=== PATIENT | male | born 1975 | race Caucasian/White ===

== ENCOUNTER 2018-03-28 17:55 | Emergency (ER) | payer BC ==
[~2018-03-28] VITALS: Ht 180.3 cm; Wt 79.4 kg
[~2018-03-28 17:55] MED LIST: HYDACE5 PO; PHENA200 PO; RAMI1.25 PO; RAMI2.5 PO; RXHYDACE PO; SULTRISS PO
[2018-03-28 18:25] LABS: BASOPHILS ABSOLUTE AUTO 0.05 K/mm3 (0.00-0.23); BASOPHILS PERCENT AUTO 0 % (0-2); EOSINOPHILS ABSOLUTE AUTO 0.18 K/mm3 (0.00-0.68); EOSINOPHILS PERCENT AUTO 2 % (0-6); Hematocrit 48.5 % (37.0-53.0); Hemoglobin 16.8 g/dL (13.5-17.5); IMMATURE GRAN ABSOLUTE AUTO 0.02 K/mm3 (0.00-0.10); IMMATURE GRAN PERCENT AUTO 0 % (0-1); LYMPHOCYTES ABSOLUTE AUTO 2.19 K/mm3 (0.84-5.20); LYMPHOCYTES PERCENT AUTO 20 % (21-46); MONOCYTES PERCENT AUTO 8 % (4-13); Mean Corpuscular HGB 29.6 pg (26.0-34.0); Mean Corpuscular HGB Conc 34.6 g/dL (31.5-36.5); Mean Corpuscular Volume 86 fL (80-100); Mean Platelet Volume 9.9 fL (9.1-12.4); NEUTROPHILS ABSOLUTE AUTO 7.88 K/mm3 (1.96-9.15); NEUTROPHILS PERCENT AUTO 70 % (41-73); Platelet Count 242 K/mm3 (150-400); RDW Coefficient Variation 12.1 % (11.7-14.2); RDW Standard Deviation 37.2 fL (35.1-46.3); Red Blood Cell Count 5.67 M/mm3 (4.30-5.90); White Blood Cell Count 11.22 K/mm3 (4.00-11.30)
[2018-03-28 18:47] LABS: Alanine Aminotransfer (ALT/SGP 25 U/L (12-78); Albumin, Blood 4.2 g/dL (3.4-5.0); Albumin/Globulin Ratio 1.3 (0.8-1.8); Alk Phos 98 U/L (50-136); Anion Gap 7 mmol/L (6-16); Aspartate Aminotrans (AST/SGOT 22 U/L (12-37); Bilirubin, Total 0.6 mg/dL (0.1-1.0); Blood Urea Nitrogen 15 mg/dL (8-24); Bun/Creatinine Ratio 22.1 (12.0-20.0); CO2, Blood 25 mmol/L (21-32); Chloride, Blood 107 mmol/L (98-108); Creatinine, Blood 0.68 mg/dL (0.60-1.20); Globulin, Blood 3.2 g/dL (2.2-4.0); Glomerular Filtration Rate >60 (60-); Glucose, Blood 99 mg/dL (70-99); Sodium, Blood 139 mmol/L (136-145); Total Protein, Blood 7.4 g/dL (6.4-8.2)
[2018-03-28] MEDS ORDERED: Zantac150 MG PO (19:15)
== END 2018-03-28 19:35 | disposition home or self-care (01) ==
LOC: ER 17:55
PROVIDERS: Emergency Medicine
DX: K29.70 Gastritis, unspecified, without bleeding (principal); F17.290 Nicotine dependence, other tobacco product, uncomplicated
CPT/HCPCS: 36415; 80053; 83690; 85025; 96361; 96374; 96375; 99284; J0780; J1200; J3010; J7030

== ENCOUNTER → 2018-08-29 | Outpatient (CLI) | payer BC ==
[~2018-08-29] MED LIST changes: +Zantac150 MG PO
[2018-08-30 09:07] LABS: Influenza A Negative (NEGATIVE); Influenza B Negative (NEGATIVE)
== END ==
LOC: LAB SHORT 16:06 → LAB 16:06
PROVIDERS: Nurse Practitioner Family
DX: R05 Cough (principal)
CPT/HCPCS: 87804

== ENCOUNTER 2019-03-13 12:30 | Inpatient (IN) | payer BC ==
[~2019-03-13] VITALS: Ht 180.3 cm; Wt 82.6 kg
--- NOTE | 2019-03-14 04:47 | NUR ---
NOC SHIFT SUMMARY PT IS PLEASANT AND COOPERATIVE WITH CARE. VSS. RESP EVEN AND UNLABORED. NPO. PAIN MANAGED PER EMAR. THE FENTANYL WAS NOT ADEQUATE FOR PAIN CONTROL. CALLED FOR TORADOL IV AND THIS HAS HELPED QUITE ALOT. PT HAS SLEPT FOR MUCH OF NIGHT. NO ACUTE CHANGES NOTED. CURRENTLY APPEARS IN NO ACUTE DISTRESS. WILL CONTINUE TO MONITOR.
[2019-03-14 05:32] LABS: Hematocrit 46.3 % (37.0-53.0); Hemoglobin 15.4 g/dL (13.5-17.5); Mean Corpuscular HGB 31.3 pg (26.0-34.0); Mean Corpuscular HGB Conc 33.3 g/dL (31.5-36.5); Mean Corpuscular Volume 94 fL (80-100); Mean Platelet Volume 9.6 fL (9.1-12.4); Platelet Count 192 K/mm3 (150-400); RDW Coefficient Variation 11.9 % (11.7-14.2); RDW Standard Deviation 41.5 fL (35.1-46.3); Red Blood Cell Count 4.92 M/mm3 (4.30-5.90); White Blood Cell Count 3.95 K/mm3 (4.00-11.30)
[2019-03-14 06:04] LABS: BAND PERCENT MAN 11 % (0-8); BASOPHILS PERCENT MAN 0 % (0-2); EOSINOPHILS ABSOLUTE MAN 0.07 K/mm3 (0.00-0.68); EOSINOPHILS PERCENT MAN 2 % (0-6); LYMPHOCYTES ABSOLUTE MAN 1.14 K/mm3 (0.84-5.20); LYMPHOCYTES PERCENT MAN 29 % (21-46); MONOCYTES ABSOLUTE MAN 0.67 K/mm3 (0.16-1.47); MONOCYTES PERCENT MAN 17 % (4-13); NEUTROPHILS ABSOLUTE MAN 2.05 K/mm3 (1.96-9.15); SEG NEUTROPHILS PERCENT MAN 41 % (41-73); TOTAL CELLS COUNTED 100
--- NOTE | 2019-03-14 18:23 | NUR ---
PATIENT HAS HAD MULTIPLE BM'S TODAY, LIQUID IN CONSISTENCY. NO COMPLAINTS OF ABDOMINAL PAIN. INDEPENDENT IN THE ROOM.
--- NOTE | 2019-03-15 09:38 | NUR ---
BREAKFAST THE PT REPORTED THAT HE TOLERATED BREAKFAST WELL, NO NAUSEA
--- NOTE | 2019-03-15 15:10 | NUR ---
PT DISCHARGED AROUND 1330 THE PT VERBALIZED UNDERSTANDING OF THE DC INSTRUCTIONS, PT HAD NO NEW PERSCRIPTIONS, THE PT DENIED ANY PAIN N/V AT DISCHARGE, THE PT DECLINED WHEELCHAIR APPEARED TO BE STEADY ON HIS FEET AND BREATHING EASILY, ACCOMPANIED BY FAMILY
== END 2019-03-15 13:31 | disposition home or self-care (01) | DRG 388 ==
LOC: ER 12:30 → MEDS 12:31 → ENPENDDIS 03-15 12:09 → MEDS 03-15 13:31
PROVIDERS: ADMIT Surgery
DX: K56.609 Unspecified intestinal obstruction, unspecified as to partial versus complete obstruction (principal); K85.90 Acute pancreatitis without necrosis or infection, unspecified; K86.1 Other chronic pancreatitis; F17.210 Nicotine dependence, cigarettes, uncomplicated; E78.00 Pure hypercholesterolemia, unspecified
CPT/HCPCS: 36415; 83605; 83615; 83690; 85025; 96361; 96365; 96366; 96375; 99284-25; J1170; J1885; J2405; J3010; J7030; J7120

== ENCOUNTER → 2019-03-13 | Outpatient (CLI) | payer BC ==
[2019-03-13 07:59] LABS: BASOPHILS ABSOLUTE AUTO 0.04 K/mm3 (0.00-0.23); BASOPHILS PERCENT AUTO 0 % (0-2); EOSINOPHILS ABSOLUTE AUTO 0.16 K/mm3 (0.00-0.68); EOSINOPHILS PERCENT AUTO 1 % (0-6); Hematocrit 50.6 % (37.0-53.0); Hemoglobin 17.7 g/dL (13.5-17.5); IMMATURE GRAN ABSOLUTE AUTO 0.07 K/mm3 (0.00-0.10); IMMATURE GRAN PERCENT AUTO 0 % (0-1); LYMPHOCYTES ABSOLUTE AUTO 1.06 K/mm3 (0.84-5.20); LYMPHOCYTES PERCENT AUTO 6 % (21-46); MONOCYTES ABSOLUTE AUTO 1.02 K/mm3 (0.16-1.47); MONOCYTES PERCENT AUTO 6 % (4-13); Mean Corpuscular HGB 31.4 pg (26.0-34.0); Mean Corpuscular Volume 90 fL (80-100); Mean Platelet Volume 9.7 fL (9.1-12.4); NEUTROPHILS ABSOLUTE AUTO 15.02 K/mm3 (1.96-9.15); NEUTROPHILS PERCENT AUTO 87 % (41-73); Platelet Count 281 K/mm3 (150-400); RDW Standard Deviation 39.4 fL (35.1-46.3); Red Blood Cell Count 5.64 M/mm3 (4.30-5.90); White Blood Cell Count 17.37 K/mm3 (4.00-11.30)
[2019-03-13 08:13] LABS: Alanine Aminotransfer (ALT/SGP 22 U/L (12-78); Albumin, Blood 4.2 g/dL (3.4-5.0); Albumin/Globulin Ratio 1.3 (0.8-1.8); Alk Phos 115 U/L (40-126); Anion Gap 8 mmol/L (6-16); Aspartate Aminotrans (AST/SGOT 18 U/L (12-37); Bilirubin, Total 0.8 mg/dL (0.1-1.0); Blood Urea Nitrogen 15 mg/dL (8-24); Bun/Creatinine Ratio 16.7 (12.0-20.0); CO2, Blood 25 mmol/L (21-32); Calcium, Blood 8.6 mg/dL (8.5-10.1); Chloride, Blood 101 mmol/L (98-108); Globulin, Blood 3.3 g/dL (2.2-4.0); Glomerular Filtration Rate >60 (60-); Glucose, Blood 120 mg/dL (70-99); Potassium, Blood 4.4 mmol/L (3.5-5.5); Sodium, Blood 134 mmol/L (136-145); Total Protein, Blood 7.5 g/dL (6.4-8.2)
== END | disposition home or self-care (01) ==
LOC: LAB SHORT 07:54 → LAB EV 07:54
PROVIDERS: Physician Assistant Medical
DX: R10.84 Generalized abdominal pain (principal)
CPT/HCPCS: 80053; 83690; 85025

== ENCOUNTER 2019-04-30 07:40 | Day surgery (SDC) | payer BC | END 2019-04-30 22:40 | disposition home or self-care (01) | LOC: MOI US 07:40 → MOI MAM 07:45 → MOI US 22:40 | DX: D48.61 Neoplasm of uncertain behavior of right breast (principal); N64.59 Other signs and symptoms in breast | CPT/HCPCS: 19083; 88305 ==

== ENCOUNTER 2022-09-02 18:42 | Emergency (ER) | payer BC ==
[~2022-09-02] VITALS: Ht 180.3 cm; Wt 92.1 kg
[2022-09-02 19:15] LABS: BASOPHILS ABSOLUTE AUTO 0.05 K/mm3 (0.00-0.23); BASOPHILS PERCENT AUTO 1 % (0-2); EOSINOPHILS ABSOLUTE AUTO 0.23 K/mm3 (0.00-0.68); EOSINOPHILS PERCENT AUTO 2 % (0-6); Hematocrit 49.2 % (37.0-53.0); IMMATURE GRAN ABSOLUTE AUTO 0.02 K/mm3 (0.00-0.10); IMMATURE GRAN PERCENT AUTO 0 % (0-1); LYMPHOCYTES ABSOLUTE AUTO 1.95 K/mm3 (0.84-5.20); LYMPHOCYTES PERCENT AUTO 21 % (21-46); MONOCYTES ABSOLUTE AUTO 0.75 K/mm3 (0.16-1.47); MONOCYTES PERCENT AUTO 8 % (4-13); Mean Corpuscular HGB 30.2 pg (26.0-34.0); Mean Corpuscular HGB Conc 34.6 g/dL (31.5-36.5); Mean Corpuscular Volume 88 fL (80-100); Mean Platelet Volume 9.9 fL (9.1-12.4); NEUTROPHILS PERCENT AUTO 68 % (41-73); Platelet Count 218 K/mm3 (150-400); RDW Coefficient Variation 11.6 % (11.7-14.2); RDW Standard Deviation 37.2 fL (35.1-46.3); Red Blood Cell Count 5.62 M/mm3 (4.30-5.90)
[2022-09-02 19:34] LABS: Albumin, Blood 4.3 g/dL (3.4-5.0); Albumin/Globulin Ratio 1.4 (0.8-1.8); Bilirubin, Total 0.7 mg/dL (0.1-1.0); Bun/Creatinine Ratio 22.7 (12.0-20.0); Calcium, Blood 10.6 mg/dL (8.5-10.1); Creatinine, Blood 0.79 mg/dL (0.60-1.20); Potassium, Blood 4.1 mmol/L (3.5-5.5); Total Protein, Blood 7.3 g/dL (6.4-8.2)
[2022-09-02 19:48] LABS: Source, Urine Clean Catch
[2022-09-02 20:09] LABS: Bilirubin, Urine Neg (Neg); Blood, Urine 1+ (Neg); Glucose Qualitative, Urine Neg (Neg); Ketones, Urine Neg (Neg); Leukocyte Esterase, Urine Neg (Neg); Nitrite, Urine Neg (Neg); Protein, Urine 1+ (Neg); Urobilinogen, Urine NORM (Normal)
[2022-09-02 20:18] LABS: Appearance, Urine Clear (Clear); Color, Urine Pale Yellow (P-Yellow)
[2022-09-02 20:19] LABS: Bacteria Not Seen /hpf; Red Blood Cells, Urine 0-2 /hpf (0-2); Squamous Epithelial Cells Not Seen /hpf (Few); White Blood Cells, Urine Not Seen /hpf (0-5)
== END 2022-09-02 23:17 | disposition home or self-care (01) ==
LOC: ER 18:42
PROVIDERS: Physician Assistant
DX: K85.90 Acute pancreatitis without necrosis or infection, unspecified (principal); F17.210 Nicotine dependence, cigarettes, uncomplicated
CPT/HCPCS: 36415; 74177; 80053; 81001; 83690; 85025; 96361; 96374-59; 99284-25; A9270; J1885; J7120; Q9967

== ENCOUNTER → 2023-01-31 | Outpatient (CLI) | payer BC ==
[2023-02-02 00:11] LABS: CHLAMYDIA TRACHOMATIS, NAA Negative (Negative)
== END | disposition home or self-care (01) ==
LOC: LAB 15:20 → LAB SHORT 15:20
PROVIDERS: Family Medicine
DX: Z11.3 Encounter for screening for infections with a predominantly sexual mode of transmission (principal)
CPT/HCPCS: 87491; 87591

== ENCOUNTER 2023-09-05 07:05 | Day surgery (SDC) | payer BC ==
[~2023-09-05] VITALS: Ht 180.3 cm; Wt 93.9 kg
[2023-09-05 11:03] VITALS: BP 128/93
== END 2023-09-05 11:05 | disposition home or self-care (01) ==
LOC: ORSCSDS 07:05
PROVIDERS: Otolaryngology
PROC: 09SL0ZZ Reposition Nasal Turbinate, Open Approach (ICD-10-PCS; principal; 2023-09-05 08:25)
PROC: 09BM0ZZ Excision of Nasal Septum, Open Approach (ICD-10-PCS; principal; 2023-09-05 08:25)
DX: J34.2 Deviated nasal septum (principal); J34.3 Hypertrophy of nasal turbinates; Z87.891 Personal history of nicotine dependence; J44.9 Chronic obstructive pulmonary disease, unspecified; Z79.899 Other long term (current) drug therapy
CPT/HCPCS: J0171; J1100; J2405; J2704; J3010; J7120